=== PATIENT | female | born 1955 | race Caucasian/White ===

== ENCOUNTER → 2024-01-14 06:33 | Day surgery (SDC) | payer BC, SELFPAY ==
[2024-01-14 07:13] LABS: Glucose - Point of Care 136 mg/dl (70-99)
== END ==
LOC: GI 06:33
PROVIDERS: ATTENDING PHYSICIAN Specialist
DX: Z12.11 Encounter for screening for malignant neoplasm of colon (principal)
CPT/HCPCS: G0121; 82962

== ENCOUNTER → 2024-03-09 07:56 | Outpatient (REF) | payer BC, SELFPAY | LOC: WDC 07:56 | PROVIDERS: ATTENDING PHYSICIAN Obstetrics & Gynecology; FAMILY PHYSICIAN Family Medicine | DX: Z12.31 Encounter for screening mammogram for malignant neoplasm of breast (principal) | CPT/HCPCS: 77063; 77067 ==

== ENCOUNTER → 2024-03-14 08:07 | Outpatient (REF) | payer BC, SELFPAY | LOC: RAD 08:07 | PROVIDERS: ATTENDING PHYSICIAN Obstetrics & Gynecology; FAMILY PHYSICIAN Family Medicine | DX: Z78.0 Asymptomatic menopausal state (principal) | CPT/HCPCS: 77080 ==

== ENCOUNTER → 2025-03-12 08:17 | Outpatient (REF) | payer BC, SELFPAY | LOC: WDC 08:17 | PROVIDERS: ATTENDING PHYSICIAN Obstetrics & Gynecology; FAMILY PHYSICIAN Family Medicine | DX: Z12.31 Encounter for screening mammogram for malignant neoplasm of breast (principal) | CPT/HCPCS: 77063; 77067 ==

== ENCOUNTER 2025-04-28 10:00 | Emergency (ER) | payer BC, SELFPAY ==
[2025-04-28 10:01] VITALS: BP 128/76
--- NOTE | 2025-04-28 10:46 | ED.GENMED ---
History of Present Illness
General
Chief Complaint: Musculo-Skeletal Complaint
Source: patient
Time Seen by Provider: 04/28/25 10:07
History of Present Illness
History of Present Illness:
70-year-old female past medical history of insulin-dependent diabetes presenting to the emergency department for evaluation of right knee pain that started after she was getting a shower and her right knee gave out and since then has had continuous
pain anteriorly along the right knee noting some increased pain while ambulating as well. She notes that she has known about arthritis in both of her knees for 'quite a long time' but has never seen anybody for this issue. Denies any fevers or
infectious symptoms. No direct trauma to the area.
Past History
Past History
ED Past Medical History: IDDM (Oral and insulin)
ED Past Surgical History: Gynecological (Hysterectomy) and Orthopedic
Social History
Tobacco: Non-smoker
Alcohol: None
Drug: None
Personal: Single
Living: alone
Employment: Employed
Family History
Family History: Diabetes
Review of Systems
Review of Systems
All Other Systems: ROS reviewed and negative except as documented in HPI and ROS
Phy Exam
Physical Exam
Physical Exam:
GENERAL: Alert , in no apparent distress
EYE: conjunctiva clear
Head: Normocephalic atraumatic
NECK: Supple,
ENT: mmm.
LUNGS: no acute respiratory distress
NEUROLOGICAL: Alert and oriented
SKIN: Warm and dry, skin intact.
MUSCULOSKELETAL: Right knee: No obvious deformity, overlying erythema, ecchymosis, abrasions or lacerations. Somewhat limited range of motion with flexion and extension secondary to pain. I do not palpate any large joint effusion or focal areas
of tenderness. No calf tenderness or edema. Both the patellar tendon and quadriceps tendon are intact.
PSYCH: Normal and appropriate interaction.
Scores
Heart Failure Risk
Heart Failure Risk Score: Not Applicable
Heart Score for Chest Pain Patients
STEMI patient?: Not applicable
Withdrawal Assessment of Alcohol
Withdrawal Assessment Completed?: Not applicable
Course
Orders/Labs/Results
Orders:
Orders
04/28/25 10:05
Knee, Right 4 or More Views [CR Knee- Right 4 Or More View*] Urgent
Comment: felt like right knee 'gave out'
Reason For Exam: right knee pain
04/28/25 10:46
Femi Wrap Right-Treatment ONCE
Vital Signs
Initial and Last Documented VS:
Initial Vital Signs
Temp Pulse Resp BP Pulse Ox
98.2 F 96 18 128/76 99
04/28/25 10:01 04/28/25 10:01 04/28/25 10:01 04/28/25 10:01 04/28/25 10:01
Last Documented Vital Signs
Temp Pulse Resp BP Pulse Ox
98.2 F 96 18 128/76 99
04/28/25 10:01 04/28/25 10:01 04/28/25 10:01 04/28/25 10:01 04/28/25 10:48
MDM/Problems Addressed
Differential Diagnosis Includes:
Knee sprain
Meniscus injury
Tendonopathy
Fx
Dislocation
MDM/Problems Addressed:
70-year-old female presenting to the ER for evaluation of right knee pain that started after she was getting out of the shower and felt her knee give out. No direct trauma to the injury making fracture less likely. X-ray ordered from triage shows
fairly significant degenerative changes but no fracture or dislocation. Patient requesting an Femi wrap. Advised continued compression ice and elevation as well as NSAIDs as needed. Patient to follow-up with orthopedics as an outpatient as needed.
*Radiology
Radiology exam reviewed: preliminary read by ED provider (No fracture, degenerative changes noted.)
*Pulse Oximetry
SaO2: 99
Oxygen Mode of Delivery: Room air
Patient hypoxic: no
*Critical Care Note
Total Time (30-74mins, 75-104mins- exclusive of procedures): Not Applicable
ED Attending Note
-
Portions of this chart may have been created with voice recognition software.� Occasional wrong word or��sound alike� substitutions may have occurred due to the inherent limitations of voice recognition software.
Discharge Plan
Departure
Patient Disposition: Home (Routine Discharge)
Date of Disposition: 04/28/25
Time of Disposition: 10:46
Patient with high blood pressure during this ER visit?: No
Discharge Problem:
Knee pain, right
Instructions: Knee Pain (DC)
Prescriptions:
No Action
prednisone 20 MG tablet
60 mg PO DAILY Qty: 15 0RF
valacyclovir [Valtrex] 500 MG tablet
500 mg PO TID Qty: 15 0RF
Referrals:
Manpreet Medina MD [Active, Orthopedics]
Stand Alone Forms: Return to Work
Interventions
Interventions:
*Risk Screen - Suicide Last Done: 04/28/25 10:01
*General Assessment Last Done: 04/28/25 10:01
*Neglect/Abuse Screening Last Done: 04/28/25 10:01
*Nursing Disposition Last Done: 04/28/25 11:07
ED-Musculoskeletal Assessment Last Done: 04/28/25 10:20
Discharge Date and Time
Discharge Date/Time: 04/28/25 11:07
Print Language: SLOVAK
== END 2025-04-28 11:07 | disposition home or self-care (01) ==
LOC: EMR 10:00
PROVIDERS: EMERGENCY PHYSICIAN Student in an Organized Health Care Education/Training Program; FAMILY PHYSICIAN Family Medicine
DX: M25.561 Pain in right knee (principal); E11.9 Type 2 diabetes mellitus without complications; Z79.4 Long term (current) use of insulin
CPT/HCPCS: 99283; 73564